=== PATIENT | female | born 1990 | race Caucasian/White ===

== ENCOUNTER 2017-04-05 09:05 | Outpatient (CLI) | payer OTHER ==
[~2017-04-05] VITALS: Ht 162.6 cm; Wt 88.0 kg
[~2017-04-05 09:05] MED LIST: ATIV1TAB10 PO; PERC2.5T PO; PRED20TA PO; TYLE325T5 PO
[2017-04-05] MEDS ORDERED: ACETAMINOPHEN TAB 650MG DOSE (2X325MG) PO ONE (09:30)
[2017-04-05] MEDS ORDERED: VEDOLIZUMAB 300 MG in NS 250 ML IV ONE (09:30)
[2017-04-05] MEDS ORDERED: diphenhydrAMINE 25 MG CAP PO ONE (09:30)
== END 2017-04-05 11:00 | disposition home or self-care (01) ==
LOC: M INFU 09:05
PROVIDERS: ATTEND Internal Medicine Gastroenterology
DX: K50.90 Crohn's disease, unspecified, without complications (principal); Z88.5 Allergy status to narcotic agent; Z88.8 Allergy status to other drugs, medicaments and biological substances; Z79.52 Long term (current) use of systemic steroids
CPT/HCPCS: 96413; J3380

== ENCOUNTER 2017-04-19 13:47 | Outpatient (CLI) | payer OTHER ==
[~2017-04-19] VITALS: Ht 162.6 cm; Wt 88.0 kg
[2017-04-19] MEDS ORDERED: ACETAMINOPHEN TAB 650MG DOSE (2X325MG) PO ONE (14:00)
[2017-04-19] MEDS ORDERED: VEDOLIZUMAB 300 MG in NS 250 ML IV ONE (14:00)
[2017-04-19] MEDS ORDERED: diphenhydrAMINE 25 MG CAP PO ONE (14:00)
== END 2017-04-19 15:00 | disposition home or self-care (01) ==
LOC: M INFU 13:47
PROVIDERS: ATTEND Internal Medicine Gastroenterology
DX: K50.90 Crohn's disease, unspecified, without complications (principal); Z88.5 Allergy status to narcotic agent; Z88.8 Allergy status to other drugs, medicaments and biological substances; Z79.899 Other long term (current) drug therapy; Z79.52 Long term (current) use of systemic steroids
CPT/HCPCS: 96413; J3380

== ENCOUNTER 2017-05-17 14:22 | Outpatient (CLI) | payer OTHER ==
[~2017-05-17] VITALS: Ht 162.6 cm; Wt 88.0 kg
[2017-05-17] MEDS ORDERED: VEDOLIZUMAB 300 MG in NS 250 ML IV ONE (14:30)
[2017-05-17] MEDS ORDERED: diphenhydrAMINE 25 MG CAP PO ONE (14:30)
[2017-05-17] MEDS ORDERED: ACETAMINOPHEN TAB 650MG DOSE (2X325MG) PO ONE (14:30)
== END 2017-05-17 15:45 | disposition home or self-care (01) ==
LOC: M INFU 14:22
PROVIDERS: ATTEND Internal Medicine Gastroenterology
DX: K50.90 Crohn's disease, unspecified, without complications (principal); I10 Essential (primary) hypertension; F32.9 Major depressive disorder, single episode, unspecified; F41.9 Anxiety disorder, unspecified; Z88.5 Allergy status to narcotic agent; Z88.8 Allergy status to other drugs, medicaments and biological substances; Z79.891 Long term (current) use of opiate analgesic; Z79.899 Other long term (current) drug therapy
CPT/HCPCS: 96413; J3380

== ENCOUNTER 2017-07-12 12:48 | Outpatient (CLI) | payer OTHER ==
[~2017-07-12] VITALS: Ht 162.6 cm; Wt 88.0 kg
[2017-07-12] MEDS ORDERED: ACETAMINOPHEN TAB 650MG DOSE (2X325MG) PO ONE (13:00)
[2017-07-12] MEDS ORDERED: diphenhydrAMINE 25 MG CAP PO ONE (13:00)
[2017-07-12] MEDS ORDERED: VEDOLIZUMAB 300 MG in NS 250 ML IV ONE (14:00)
== END 2017-07-12 14:35 | disposition home or self-care (01) ==
LOC: M INFU 12:48
PROVIDERS: ATTEND Internal Medicine Gastroenterology
DX: K50.90 Crohn's disease, unspecified, without complications (principal); Z87.891 Personal history of nicotine dependence; Z88.5 Allergy status to narcotic agent; Z88.8 Allergy status to other drugs, medicaments and biological substances; Z79.899 Other long term (current) drug therapy
CPT/HCPCS: 96413; J3380

== ENCOUNTER 2017-08-29 10:50 | Outpatient (CLI) | payer OTHER ==
[2017-08-29] MEDS: ACETAMINOPHEN TAB 650MG DOSE (2X325MG) PO (11:18)
[2017-08-29] MEDS: diphenhydrAMINE 25 MG CAP PO (11:18)
[2017-08-29] MEDS: VEDOLIZUMAB 300 MG in NS 250 ML IV (11:21)
== END 2017-08-29 12:00 | disposition home or self-care (01) ==
LOC: M INFU 10:50
DX: K50.90 Crohn's disease, unspecified, without complications (principal)
CPT/HCPCS: 96365

== ENCOUNTER 2017-10-13 12:49 | Outpatient (CLI) | payer OTHER ==
[2017-10-13] MEDS: ACETAMINOPHEN TAB 650MG DOSE (2X325MG) PO (13:29)
[2017-10-13] MEDS: diphenhydrAMINE 25 MG CAP PO (13:29)
[2017-10-13] MEDS: VEDOLIZUMAB 300 MG in NS 250 ML IV (13:45)
== END 2017-10-13 14:35 | disposition home or self-care (01) ==
LOC: M INFU 12:49
DX: K50.90 Crohn's disease, unspecified, without complications (principal); I10 Essential (primary) hypertension; F32.9 Major depressive disorder, single episode, unspecified; F41.9 Anxiety disorder, unspecified; Z79.891 Long term (current) use of opiate analgesic; Z79.899 Other long term (current) drug therapy; Z87.891 Personal history of nicotine dependence; Z98.51 Tubal ligation status
CPT/HCPCS: J3380

== ENCOUNTER 2017-11-15 12:23 | Outpatient (CLI) | payer OTHER ==
[2017-11-15] MEDS: diphenhydrAMINE 25 MG CAP PO (12:51)
[2017-11-15] MEDS: ACETAMINOPHEN TAB 650MG DOSE (2X325MG) PO (12:51)
[2017-11-15] MEDS: VEDOLIZUMAB 300 MG in NS 250 ML IV (13:21)
== END 2017-11-15 14:10 | disposition home or self-care (01) ==
LOC: M INFU 12:23
DX: K50.90 Crohn's disease, unspecified, without complications (principal); Z88.5 Allergy status to narcotic agent; Z88.8 Allergy status to other drugs, medicaments and biological substances; Z79.899 Other long term (current) drug therapy
CPT/HCPCS: J3380

== ENCOUNTER 2017-11-30 18:43 | Emergency (ER) | payer OTHER ==
[2017-11-30 19:18] LABS: KETONE, URINE AUTO RFX NEGATIVE (NEGATIVE); LEUKOCYTE ESTERASE UR AUTO RFX NEGATIVE (NEGATIVE); NITRITE, URINE AUTO RFX NEGATIVE (NEGATIVE); RBC, URINE AUTO RFX 1 /HPF (0-3); SPECIFIC GRAVITY UR AUTO RFX 1.005 (1.002-1.035); SQUAM EPITHELIAL CELL UR AURFX 1 /HPF (0-6); WBC, URINE AUTO RFX 0 /HPF (0-3)
[2017-11-30] MEDS: HYDROmorphone HCL 1 MG/ML SYRINGE (J1170) IV ×2 (19:45→22:18)
[2017-11-30] MEDS: NS 1,000 ML IV (19:45)
[2017-11-30] MEDS: ONDANSETRON 4MG/2ML VIAL (J2405) IV (19:45)
[2017-11-30 20:51] LABS: BASO % 0.1 % (0.0-1.0); EOS # 0.1 10^3/uL (0.0-0.50); EOS % 0.9 % (0.0-3.0); HEMATOCRIT 41.9 % (36.0-47.0); HEMOGLOBIN 13.9 g/dl (12.0-15.5); IMMATURE GRANULOCYTE % 0.4 % (0-3.0); LYMPH # 3.2 10^3/uL (1.5-6.5); LYMPH % 22.8 % (24.0-44.0); MEAN CORPUSCULAR HEMOGLOBIN 29.8 pg (27.0-33.0); MEAN CORPUSCULAR HGB CONC 33.2 g/dl (32.0-36.5); MEAN CORPUSCULAR VOLUME 89.7 fl (80.0-96.0); MONO # 0.8 10^3/uL (0.0-0.8); MONO % 5.9 % (0.0-5.0); NEUTROPHILS # 9.7 10^3/uL (1.8-7.7); NEUTROPHILS % 69.9 % (36.0-66.0); PLATELET COUNT, AUTOMATED 301 10^3/uL (150-450); RED BLOOD COUNT 4.67 10^6/uL (4.00-5.40); RED CELL DISTRIBUTION WIDTH 12.9 % (11.5-14.5); WHITE BLOOD COUNT 13.8 10^3/uL (4.0-10.0)
[2017-11-30 21:06] LABS: C REACTIVE PROTEIN QUANTITATIV < 0.30 MG/DL (0.00-0.30)
[2017-11-30 21:08] LABS: ERYTHROCYTE SEDIMENTATION RATE 10 mm/hr (0-20)
[2017-11-30 21:12] LABS: ALBUMIN 4.3 GM/DL (3.2-5.2); ALBUMIN/GLOBULIN RATIO 1.16 (1.00-1.93); ALKALINE PHOSPHATASE 79 U/L (45-117); ALT/SGPT 24 U/L (12-78); ANION GAP 7 MEQ/L (8-16); AST/SGOT 23 U/L (7-37); BILIRUBIN,DIRECT < 0.1 MG/DL (0.0-0.2); BILIRUBIN,TOTAL 0.2 MG/DL (0.2-1.0); BLOOD UREA NITROGEN 9 MG/DL (7-18); CARBON DIOXIDE LEVEL 27 MEQ/L (21-32); CHLORIDE LEVEL 106 MEQ/L (98-107); GLOMERULAR FILTRATION RATE > 60.0 (>60); GLUCOSE, FASTING 81 MG/DL (70-100); HCG, SERUM QUANTITATIVE < 1.0 MIU/ML; LIPASE 160 U/L (73-393); POTASSIUM SERUM 4.3 MEQ/L (3.5-5.1); SODIUM LEVEL 140 MEQ/L (136-145)
[2017-11-30] MEDS ORDERED: GASTROGRAFIN SOLUTION 30ML (Q9963) As Ordered (22:15)
[2017-11-30] MEDS: GASTROGRAFIN SOLUTION 30ML (Q9963) PO ×2 (22:30→23:08)
[2017-11-30] MEDS ORDERED: ISOVUE-370 76% 100ML VIAL (Q9967) As Ordered (23:39)
[2017-12-01] MEDS: methylPREDNISolone INJ 125 MG/2 ML VIAL (J2930) IV (01:30)
[2017-12-01] MEDS: HYDROmorphone HCL 1 MG/ML SYRINGE (J1170) IV (01:30)
== END 2017-12-01 01:53 | disposition home or self-care (01) ==
LOC: M ED 12-01 01:53
DX: K50.10 Crohn's disease of large intestine without complications (principal); F32.9 Major depressive disorder, single episode, unspecified; F41.9 Anxiety disorder, unspecified; Z87.891 Personal history of nicotine dependence; Z88.5 Allergy status to narcotic agent; Z88.8 Allergy status to other drugs, medicaments and biological substances; Z79.899 Other long term (current) drug therapy
CPT/HCPCS: J1170

== ENCOUNTER → 2017-12-16 | Outpatient (REF) | payer OTHER | LOC: M LAB REF 13:31 | DX: K50.018 Crohn's disease of small intestine with other complication (principal) ==

== ENCOUNTER 2018-01-02 13:12 | Outpatient (CLI) | payer OTHER ==
[2018-01-02] MEDS: ACETAMINOPHEN TAB 650MG DOSE (2X325MG) PO (13:46)
[2018-01-02] MEDS: diphenhydrAMINE 25 MG CAP PO (13:46)
[2018-01-02] MEDS: VEDOLIZUMAB 300 MG in NS 250 ML IV (14:01)
== END 2018-01-02 14:45 | disposition home or self-care (01) ==
LOC: M INFU 13:12
DX: K50.90 Crohn's disease, unspecified, without complications (principal); I10 Essential (primary) hypertension; F32.9 Major depressive disorder, single episode, unspecified; F41.9 Anxiety disorder, unspecified; Z79.891 Long term (current) use of opiate analgesic; Z79.899 Other long term (current) drug therapy; Z88.5 Allergy status to narcotic agent; Z88.8 Allergy status to other drugs, medicaments and biological substances; Z87.891 Personal history of nicotine dependence
CPT/HCPCS: J3380

== ENCOUNTER → 2018-01-09 | Outpatient (REF) | payer OTHER | LOC: M LAB REF 12:02 | DX: K50.018 Crohn's disease of small intestine with other complication (principal); R19.7 Diarrhea, unspecified ==

== ENCOUNTER 2018-01-24 09:05 | Day surgery (SDC) | payer OTHER ==
[2018-01-24] MEDS ORDERED: PROPOFOL 200 MG/20 ML VIAL As Ordered ×2 (09:22→10:42)
[2018-01-24] MEDS ORDERED: LIDOCAINE 2% INJ 100 MG/5 ML SDV (FOR ANES.) As Ordered (09:22)
[2018-01-24] MEDS: NS 1,000 ML IV (09:26)
== END 2018-01-24 11:30 | disposition home or self-care (01) ==
LOC: M OPP 09:05
DX: K64.0 First degree hemorrhoids (principal); Z98.0 Intestinal bypass and anastomosis status; K50.90 Crohn's disease, unspecified, without complications; K52.9 Noninfective gastroenteritis and colitis, unspecified; K21.9 Gastro-esophageal reflux disease without esophagitis; F41.9 Anxiety disorder, unspecified; F32.9 Major depressive disorder, single episode, unspecified; G43.909 Migraine, unspecified, not intractable, without status migrainosus; J45.909 Unspecified asthma, uncomplicated; Z79.899 Other long term (current) drug therapy; Z88.8 Allergy status to other drugs, medicaments and biological substances; Z87.891 Personal history of nicotine dependence
CPT/HCPCS: 45378

== ENCOUNTER 2018-03-26 11:35 | Outpatient (CLI) | payer OTHER ==
[2018-03-26] MEDS: diphenhydrAMINE 25 MG CAP PO (12:04)
[2018-03-26] MEDS: ACETAMINOPHEN TAB 650MG DOSE (2X325MG) PO (12:04)
[2018-03-26] MEDS: VEDOLIZUMAB 300 MG in NS 250 ML IV (12:14)
== END 2018-03-26 13:10 | disposition home or self-care (01) ==
LOC: M INFU 11:35
DX: K50.90 Crohn's disease, unspecified, without complications (principal); Z88.8 Allergy status to other drugs, medicaments and biological substances; Z79.899 Other long term (current) drug therapy; Z79.891 Long term (current) use of opiate analgesic
CPT/HCPCS: J3380

== ENCOUNTER 2018-05-02 11:42 | Outpatient (CLI) | payer OTHER ==
[2018-05-02] MEDS: diphenhydrAMINE 25 MG CAP PO (12:15)
[2018-05-02] MEDS: ACETAMINOPHEN TAB 650MG DOSE (2X325MG) PO (12:15)
[2018-05-02] MEDS: VEDOLIZUMAB 300 MG in NS 250 ML IV (12:47)
== END 2018-05-02 13:45 | disposition home or self-care (01) ==
LOC: M INFU 11:42
DX: K50.90 Crohn's disease, unspecified, without complications (principal); G43.909 Migraine, unspecified, not intractable, without status migrainosus; J45.909 Unspecified asthma, uncomplicated; F41.9 Anxiety disorder, unspecified; F32.9 Major depressive disorder, single episode, unspecified; N94.6 Dysmenorrhea, unspecified; G47.00 Insomnia, unspecified; Z79.899 Other long term (current) drug therapy; Z88.8 Allergy status to other drugs, medicaments and biological substances; Z90.49 Acquired absence of other specified parts of digestive tract
CPT/HCPCS: J3380

== ENCOUNTER 2018-06-21 15:25 | Outpatient (CLI) | payer OTHER ==
[2018-06-21] MEDS: ACETAMINOPHEN TAB 650MG DOSE (2X325MG) PO (15:46)
[2018-06-21] MEDS: diphenhydrAMINE 25 MG CAP PO (15:46)
[2018-06-21] MEDS: VEDOLIZUMAB 300 MG in NS 250 ML IV (16:11)
== END 2018-06-21 17:00 | disposition home or self-care (01) ==
LOC: M INFU 15:25
DX: K50.90 Crohn's disease, unspecified, without complications (principal); Z79.891 Long term (current) use of opiate analgesic; Z79.899 Other long term (current) drug therapy; Z88.5 Allergy status to narcotic agent; Z88.8 Allergy status to other drugs, medicaments and biological substances
CPT/HCPCS: J3380

== ENCOUNTER 2018-07-25 11:33 | Outpatient (CLI) | payer OTHER ==
[2018-07-25] MEDS: diphenhydrAMINE 25 MG CAP PO (12:04)
[2018-07-25] MEDS: ACETAMINOPHEN TAB 650MG DOSE (2X325MG) PO (12:04)
[2018-07-25] MEDS: VEDOLIZUMAB 300 MG in NS 250 ML IV (12:05)
== END 2018-07-25 13:00 | disposition home or self-care (01) ==
LOC: M INFU 11:33
DX: K50.90 Crohn's disease, unspecified, without complications (principal); Z88.5 Allergy status to narcotic agent; Z88.8 Allergy status to other drugs, medicaments and biological substances
CPT/HCPCS: J3380

== ENCOUNTER 2018-09-06 10:23 | Outpatient (CLI) | payer OTHER ==
[~2018-09-06] VITALS: Ht 162.6 cm; Wt 64.0 kg
[~2018-09-06 10:23] MED LIST changes: +ENTY1INJ IV; +MORP1CAP46 PO; +MORP20SO3 PO; +PERC5TAB12 PO
[2018-09-06 10:38] VITALS: BP 149/75
[2018-09-06 11:00] VITALS: BP 118/58
[2018-09-06] MEDS ORDERED: VEDOLIZUMAB 300 MG in NS 250 ML IV ONE (11:00)
[2018-09-06] MEDS ORDERED: ACETAMINOPHEN TAB 650MG DOSE (2X325MG) PO ONE (11:00)
[2018-09-06] MEDS ORDERED: diphenhydrAMINE 25 MG CAP PO ONE (11:00)
[2018-09-06 12:00] VITALS: BP 128/80
== END 2018-09-06 12:15 | disposition home or self-care (01) ==
LOC: M INFU 10:23
PROVIDERS: ATTEND Internal Medicine Gastroenterology
DX: K50.90 Crohn's disease, unspecified, without complications (principal); Z88.5 Allergy status to narcotic agent; Z88.8 Allergy status to other drugs, medicaments and biological substances
CPT/HCPCS: 96365; J3380

== ENCOUNTER 2018-10-12 10:50 | Outpatient (CLI) | payer OTHER ==
[~2018-10-12] VITALS: Ht 162.6 cm; Wt 64.0 kg
[2018-10-12] MEDS ORDERED: diphenhydrAMINE 25 MG CAP PO ONE (11:00)
[2018-10-12] MEDS ORDERED: VEDOLIZUMAB 300 MG in NS 250 ML IV ONE (11:00)
[2018-10-12] MEDS ORDERED: ACETAMINOPHEN TAB 650MG DOSE (2X325MG) PO ONE (11:00)
[2018-10-12 11:12] VITALS: BP 136/66
[2018-10-12 12:13] VITALS: BP 124/88
== END 2018-10-12 12:15 | disposition home or self-care (01) ==
LOC: M INFU 10:50
PROVIDERS: ATTEND Internal Medicine Gastroenterology
DX: K50.90 Crohn's disease, unspecified, without complications (principal); Z88.8 Allergy status to other drugs, medicaments and biological substances
CPT/HCPCS: 96365; J3380

== ENCOUNTER 2018-11-23 11:28 | Outpatient (CLI) | payer OTHER ==
[~2018-11-23] VITALS: Ht 162.6 cm; Wt 90.7 kg
[2018-11-23 11:35] VITALS: BP 127/73
[2018-11-23] MEDS ORDERED: VEDOLIZUMAB 300 MG in NS 250 ML IV ONE (12:00)
[2018-11-23] MEDS ORDERED: ACETAMINOPHEN TAB 650MG DOSE (2X325MG) PO ONE (12:00)
[2018-11-23] MEDS ORDERED: diphenhydrAMINE 25 MG CAP PO ONE (12:00)
== END 2018-11-23 13:15 | disposition home or self-care (01) ==
LOC: M INFU 11:28
PROVIDERS: ATTEND Internal Medicine Gastroenterology
DX: K50.90 Crohn's disease, unspecified, without complications (principal); Z88.5 Allergy status to narcotic agent; Z88.8 Allergy status to other drugs, medicaments and biological substances; Z79.899 Other long term (current) drug therapy
CPT/HCPCS: 96365; J3380

== ENCOUNTER 2019-01-04 12:09 | Outpatient (CLI) | payer OTHER ==
[~2019-01-04] VITALS: Ht 162.6 cm; Wt 90.7 kg
[2019-01-04 12:15] VITALS: BP 132/84
[2019-01-04] MEDS ORDERED: diphenhydrAMINE 25 MG CAP PO ONE (12:30)
[2019-01-04] MEDS ORDERED: ACETAMINOPHEN TAB 650MG DOSE (2X325MG) PO ONE (12:30)
[2019-01-04] MEDS ORDERED: VEDOLIZUMAB 300 MG in NS 250 ML IV ONE (13:00)
[2019-01-04 14:00] VITALS: BP 121/81
== END 2019-01-04 14:00 | disposition home or self-care (01) ==
LOC: M INFU 12:09
PROVIDERS: ATTEND Internal Medicine Gastroenterology
DX: K50.90 Crohn's disease, unspecified, without complications (principal); Z88.5 Allergy status to narcotic agent; Z88.8 Allergy status to other drugs, medicaments and biological substances
CPT/HCPCS: 96365; J3380

== ENCOUNTER 2019-02-15 10:44 | Outpatient (CLI) | payer OTHER ==
[2019-02-15 10:45] VITALS: BP 131/78
[2019-02-15] MEDS ORDERED: ACETAMINOPHEN TAB 650MG DOSE (2X325MG) PO ONE (11:00)
[2019-02-15] MEDS ORDERED: diphenhydrAMINE 25 MG CAP PO ONE (11:00)
[2019-02-15] MEDS ORDERED: VEDOLIZUMAB 300 MG in NS 250 ML IV ONE (11:15)
[2019-02-15 12:00] VITALS: BP 124/68
== END 2019-02-15 12:00 | disposition home or self-care (01) ==
LOC: M INFU 10:44
PROVIDERS: ATTEND Internal Medicine Gastroenterology
DX: K50.90 Crohn's disease, unspecified, without complications (principal); Z88.5 Allergy status to narcotic agent; Z88.8 Allergy status to other drugs, medicaments and biological substances
CPT/HCPCS: 96365; 96366; J3380

== ENCOUNTER 2019-03-29 10:41 | Outpatient (CLI) | payer OTHER ==
[~2019-03-29] VITALS: Ht 162.6 cm; Wt 90.7 kg
[2019-03-29 11:10] VITALS: BP 136/84
[2019-03-29] MEDS ORDERED: diphenhydrAMINE 25 MG CAP PO ONE (12:00)
[2019-03-29] MEDS ORDERED: ACETAMINOPHEN TAB 650MG DOSE (2X325MG) PO ONE (12:00)
[2019-03-29] MEDS ORDERED: VEDOLIZUMAB 300 MG in NS 250 ML IV ONE (12:00)
[2019-03-29 12:05] VITALS: BP 125/78
== END 2019-03-29 12:20 | disposition home or self-care (01) ==
LOC: M INFU 10:41
PROVIDERS: ATTEND Internal Medicine Gastroenterology
DX: K50.90 Crohn's disease, unspecified, without complications (principal); Z88.5 Allergy status to narcotic agent; Z88.8 Allergy status to other drugs, medicaments and biological substances
CPT/HCPCS: 96365; J3380

== ENCOUNTER 2019-05-10 10:46 | Outpatient (CLI) | payer OTHER ==
[~2019-05-10] VITALS: Ht 162.6 cm; Wt 90.9 kg
[2019-05-10 10:50] VITALS: BP 128/78
[2019-05-10] MEDS ORDERED: VEDOLIZUMAB 300 MG in NS 250 ML IV ONE (12:00)
[2019-05-10] MEDS ORDERED: ACETAMINOPHEN TAB 650MG DOSE (2X325MG) PO ONE (12:00)
[2019-05-10] MEDS ORDERED: diphenhydrAMINE 25 MG CAP PO ONE (12:00)
[2019-05-10 12:45] VITALS: BP 104/68
[2019-05-10] MEDS ORDERED: ZOFR4TAB16 PO (17:59)
== END 2019-05-10 12:45 | disposition home or self-care (01) ==
LOC: M INFU 10:46
PROVIDERS: ATTEND Internal Medicine Gastroenterology
DX: K50.90 Crohn's disease, unspecified, without complications (principal); Z88.5 Allergy status to narcotic agent; Z88.8 Allergy status to other drugs, medicaments and biological substances
CPT/HCPCS: 96365; J3380

== ENCOUNTER 2019-06-21 10:38 | Outpatient (CLI) | payer OTHER ==
[~2019-06-21] VITALS: Ht 162.6 cm; Wt 90.7 kg
[~2019-06-21 10:38] MED LIST changes: +ZOFR4TAB16 PO
[2019-06-21 10:40] VITALS: BP 140/91
[2019-06-21] MEDS ORDERED: diphenhydrAMINE 25 MG CAP PO ONE (12:00)
[2019-06-21] MEDS ORDERED: VEDOLIZUMAB 300 MG in NS 250 ML IV ONE (12:00)
[2019-06-21] MEDS ORDERED: ACETAMINOPHEN TAB 650MG DOSE (2X325MG) PO ONE (12:00)
[2019-06-21 12:05] VITALS: BP 134/87
== END 2019-06-21 12:05 ==
LOC: M INFU 10:38
PROVIDERS: ATTEND Internal Medicine Gastroenterology
DX: K50.90 Crohn's disease, unspecified, without complications (principal); Z88.5 Allergy status to narcotic agent; Z88.8 Allergy status to other drugs, medicaments and biological substances
CPT/HCPCS: 96365; J3380

== ENCOUNTER 2019-08-02 10:44 | Outpatient (CLI) | payer OTHER ==
[~2019-08-02] VITALS: Ht 162.6 cm; Wt 90.7 kg
[2019-08-02 10:45] VITALS: BP 155/89
[2019-08-02] MEDS ORDERED: SULF1TAB30 PO (11:02)
[2019-08-02] MEDS ORDERED: diphenhydrAMINE 25 MG CAP PO ONE (11:15)
[2019-08-02] MEDS ORDERED: ACETAMINOPHEN TAB 650MG DOSE (2X325MG) PO ONE (11:15)
[2019-08-02] MEDS ORDERED: VEDOLIZUMAB 300 MG in NS 250 ML IV ONE (11:30)
[2019-08-02 12:05] VITALS: BP 145/94
== END 2019-08-02 12:05 | disposition home or self-care (01) ==
LOC: M INFU 10:44
PROVIDERS: ATTEND Internal Medicine Gastroenterology
DX: K50.90 Crohn's disease, unspecified, without complications (principal); Z88.8 Allergy status to other drugs, medicaments and biological substances
CPT/HCPCS: 96365; J3380

== ENCOUNTER 2019-09-13 10:13 | Outpatient (CLI) | payer OTHER ==
[~2019-09-13] VITALS: Ht 162.6 cm; Wt 90.7 kg
[~2019-09-13 10:13] MED LIST changes: +SULF1TAB30 PO
[2019-09-13] MEDS ORDERED: diphenhydrAMINE 25 MG CAP PO ONE (10:30)
[2019-09-13] MEDS ORDERED: ACETAMINOPHEN TAB 650MG DOSE (2X325MG) PO ONE (10:30)
[2019-09-13] MEDS ORDERED: VEDOLIZUMAB 300 MG in NS 250 ML IV ONE (10:30)
[2019-09-13 10:49] VITALS: BP 131/77
[2019-09-13 11:44] VITALS: BP 150/76
== END 2019-09-13 11:40 | disposition home or self-care (01) ==
LOC: M INFU 10:13
PROVIDERS: ATTEND Internal Medicine Gastroenterology
DX: K50.90 Crohn's disease, unspecified, without complications (principal); Z88.1 Allergy status to other antibiotic agents; Z88.8 Allergy status to other drugs, medicaments and biological substances
CPT/HCPCS: 96365; J3380

== ENCOUNTER 2019-10-28 11:07 | Outpatient (CLI) | payer OTHER ==
[~2019-10-28] VITALS: Ht 162.6 cm; Wt 90.7 kg
[2019-10-28 11:15] VITALS: BP 133/89
[2019-10-28] MEDS ORDERED: VEDOLIZUMAB 300 MG in NS 250 ML IV ONE (11:35)
[2019-10-28] MEDS ORDERED: ACETAMINOPHEN TAB 650MG DOSE (2X325MG) PO ONE (11:35)
[2019-10-28] MEDS ORDERED: diphenhydrAMINE 25 MG CAP PO ONE (11:35)
[2019-10-28 12:30] VITALS: BP 127/79
== END 2019-10-28 12:30 | disposition home or self-care (01) ==
LOC: M INFU 11:07
PROVIDERS: ATTEND Internal Medicine Gastroenterology
DX: K50.90 Crohn's disease, unspecified, without complications (principal); Z88.8 Allergy status to other drugs, medicaments and biological substances; Z88.9 Allergy status to unspecified drugs, medicaments and biological substances
CPT/HCPCS: 96365; J3380

== ENCOUNTER 2019-12-09 11:07 | Outpatient (CLI) | payer OTHER ==
[~2019-12-09] VITALS: Ht 162.6 cm; Wt 90.7 kg
[2019-12-09 11:15] VITALS: BP 134/74
[2019-12-09] MEDS ORDERED: ACETAMINOPHEN TAB 650MG DOSE (2X325MG) PO ONE (11:45)
[2019-12-09] MEDS ORDERED: diphenhydrAMINE 25MG CAP PO ONE (11:45)
[2019-12-09] MEDS ORDERED: VEDOLIZUMAB 300 MG in NS 250 ML IV ONE (11:45)
[2019-12-09 12:20] VITALS: BP 116/72
== END 2019-12-09 12:20 | disposition home or self-care (01) ==
LOC: M INFU 11:07
PROVIDERS: ATTEND Internal Medicine Gastroenterology
DX: K50.90 Crohn's disease, unspecified, without complications (principal); Z88.8 Allergy status to other drugs, medicaments and biological substances
CPT/HCPCS: 96365; J3380

== ENCOUNTER 2020-01-21 11:08 | Outpatient (CLI) | payer OTHER ==
[~2020-01-21] VITALS: Ht 162.6 cm; Wt 90.7 kg
[2020-01-21 11:24] VITALS: BP 137/81
[2020-01-21] MEDS ORDERED: VEDOLIZUMAB 300 MG in NS 250 ML IV ONE (11:30)
[2020-01-21] MEDS ORDERED: diphenhydrAMINE 25MG CAP PO ONE (11:30)
[2020-01-21] MEDS ORDERED: ACETAMINOPHEN TAB 650MG DOSE (2X325MG) PO ONE (11:30)
[2020-01-21 12:42] VITALS: BP 143/87
== END 2020-01-21 12:45 | disposition home or self-care (01) ==
LOC: M INFU 11:08
PROVIDERS: ATTEND Internal Medicine Gastroenterology
DX: K50.90 Crohn's disease, unspecified, without complications (principal)
CPT/HCPCS: 96365; J3380

== ENCOUNTER 2020-03-03 10:50 | Outpatient (CLI) | payer OTHER ==
[~2020-03-03] VITALS: Ht 162.6 cm; Wt 90.9 kg
[2020-03-03 11:12] VITALS: BP 156/85
[2020-03-03] MEDS ORDERED: ACETAMINOPHEN TAB 650MG DOSE (2X325MG) PO ONE (11:15)
[2020-03-03] MEDS ORDERED: diphenhydrAMINE 25MG CAP PO ONE (11:15)
[2020-03-03] MEDS ORDERED: VEDOLIZUMAB 300 MG in NS 250 ML IV ONE (11:30)
[2020-03-03 12:10] VITALS: BP 134/85
== END 2020-03-03 12:10 | disposition home or self-care (01) ==
LOC: M INFU 10:50
PROVIDERS: ATTEND Internal Medicine Gastroenterology
DX: K50.90 Crohn's disease, unspecified, without complications (principal)
CPT/HCPCS: 96365; J3380

== ENCOUNTER 2020-04-14 11:30 | Outpatient (CLI) | payer OTHER ==
[~2020-04-14 11:30] MED LIST changes: +VEDOLIZUMAB 300MG VIAL (ENTYVIO) (J3380 PER 1MG) ONE
[2020-04-14] MEDS ORDERED: ACETAMINOPHEN TAB 650MG DOSE (2X325MG) As Ordered ONE (12:09)
[2020-04-14] MEDS ORDERED: diphenhydrAMINE 25MG CAP As Ordered ONE (12:10)
== END 2020-04-14 13:00 | disposition home or self-care (01) ==
LOC: M INFU 11:30
PROVIDERS: ATTEND Internal Medicine Gastroenterology
DX: K50.90 Crohn's disease, unspecified, without complications (principal)
CPT/HCPCS: 96365; J3380

== ENCOUNTER 2020-05-12 11:16 | Outpatient (CLI) | payer OTHER ==
[~2020-05-12] VITALS: Ht 162.6 cm; Wt 90.7 kg
[~2020-05-12 11:16] MED LIST changes: -VEDOLIZUMAB 300MG VIAL (ENTYVIO) (J3380 PER 1MG) ONE
[2020-05-12] MEDS ORDERED: ACETAMINOPHEN TAB 650MG DOSE (2X325MG) As Ordered ONE (11:29)
[2020-05-12] MEDS ORDERED: diphenhydrAMINE 25MG CAP As Ordered ONE (11:29)
[2020-05-12] MEDS ORDERED: diphenhydrAMINE 25MG CAP PO ONE (11:30)
[2020-05-12] MEDS ORDERED: VEDOLIZUMAB 300 MG in NS 250 ML IV ONE (11:30)
[2020-05-12] MEDS ORDERED: ACETAMINOPHEN TAB 650MG DOSE (2X325MG) PO ONE (11:30)
[2020-05-12 11:34] VITALS: BP 135/86
[2020-05-12 11:38] VITALS: BP 135/86
[2020-05-12 12:47] VITALS: BP 129/98
== END 2020-05-12 12:45 | disposition home or self-care (01) ==
LOC: M INFU 11:16
PROVIDERS: ATTEND Internal Medicine Gastroenterology
DX: K50.90 Crohn's disease, unspecified, without complications (principal)
CPT/HCPCS: 96365; J3380

== ENCOUNTER 2020-06-09 11:06 | Outpatient (CLI) | payer OTHER ==
[~2020-06-09] VITALS: Ht 162.6 cm; Wt 90.7 kg
[2020-06-09] MEDS: ACETAMINOPHEN TAB 650MG DOSE (2X325MG) PO ONE (11:19)
[2020-06-09] MEDS: diphenhydrAMINE 25MG CAP PO ONE (11:20)
[2020-06-09 11:30] VITALS: BP 142/78
[2020-06-09] MEDS: VEDOLIZUMAB 300 MG in NS 250 ML IV ONE (11:31)
[2020-06-09 12:19] VITALS: BP 138/81
[2020-06-09 12:21] VITALS: BP 138/81
== END 2020-06-09 12:20 | disposition home or self-care (01) ==
LOC: M INFU 11:06
PROVIDERS: ATTEND Internal Medicine Gastroenterology
DX: K50.90 Crohn's disease, unspecified, without complications (principal)
CPT/HCPCS: 96365; J3380

== ENCOUNTER 2020-07-10 14:09 | Outpatient (CLI) | payer OTHER ==
[~2020-07-10] VITALS: Ht 167.6 cm; Wt 90.7 kg
[2020-07-10] MEDS ORDERED: ACETAMINOPHEN TAB 650MG DOSE (2X325MG) PO ONE (14:30)
[2020-07-10] MEDS ORDERED: VEDOLIZUMAB 300 MG in NS 250 ML IV ONE (14:30)
[2020-07-10] MEDS ORDERED: diphenhydrAMINE 25MG CAP PO ONE (14:30)
[2020-07-10 14:38] VITALS: BP 117/58
[2020-07-10 14:43] VITALS: BP 117/58
[2020-07-10 15:05] VITALS: BP 135/79
[2020-07-10 15:20] VITALS: BP 135/79
== END 2020-07-10 15:20 | disposition home or self-care (01) ==
LOC: M INFU 14:09
PROVIDERS: ATTEND Internal Medicine Gastroenterology
DX: K50.90 Crohn's disease, unspecified, without complications (principal); Z88.8 Allergy status to other drugs, medicaments and biological substances
CPT/HCPCS: 96365; J3380

== ENCOUNTER 2020-08-07 13:57 | Outpatient (CLI) | payer OTHER ==
[~2020-08-07] VITALS: Ht 167.6 cm; Wt 90.7 kg
[2020-08-07 14:00] VITALS: BP 118/73
[2020-08-07] MEDS ORDERED: ACETAMINOPHEN TAB 650MG DOSE (2X325MG) PO ONE (14:30)
[2020-08-07] MEDS ORDERED: VEDOLIZUMAB 300 MG in NS 250 ML IV ONE (14:30)
[2020-08-07] MEDS ORDERED: diphenhydrAMINE 25MG CAP PO ONE (14:30)
[2020-08-07 15:30] VITALS: BP 120/74
== END 2020-08-07 15:30 | disposition home or self-care (01) ==
LOC: M INFU 13:57
PROVIDERS: ATTEND Internal Medicine Gastroenterology
DX: K50.90 Crohn's disease, unspecified, without complications (principal); Z88.8 Allergy status to other drugs, medicaments and biological substances
CPT/HCPCS: 96365; J3380

== ENCOUNTER 2020-10-07 10:26 | Outpatient (CLI) | payer OTHER ==
[~2020-10-07] VITALS: Ht 167.6 cm; Wt 90.7 kg
[~2020-10-07 10:26] MED LIST changes: +ACETAMINOPHEN TAB 650MG DOSE (2X325MG) PO ONE; +VEDOLIZUMAB 300 MG in NS 250 ML IV ONE; +diphenhydrAMINE 25MG CAP PO ONE
[2020-10-07 10:30] VITALS: BP 120/77
[2020-10-07] MEDS ORDERED: VEDOLIZUMAB 300 MG in NS 250 ML IV ONE (10:30)
[2020-10-07] MEDS ORDERED: diphenhydrAMINE 25MG CAP PO ONE (10:30)
[2020-10-07] MEDS ORDERED: ACETAMINOPHEN TAB 650MG DOSE (2X325MG) PO ONE (10:30)
[2020-10-07 13:00] VITALS: BP 118/71
== END 2020-10-07 13:00 | disposition home or self-care (01) ==
LOC: M INFU 10:26
PROVIDERS: ATTEND Internal Medicine Gastroenterology
DX: K50.90 Crohn's disease, unspecified, without complications (principal); Z88.8 Allergy status to other drugs, medicaments and biological substances
CPT/HCPCS: 96365; J3380

== ENCOUNTER → 2020-10-07 | Outpatient (CLI) | payer OTHER ==
[2020-10-07 11:50] LABS: C REACTIVE PROTEIN QUANTITATIV < 0.30 MG/DL (0.00-0.30); CPK CREATINE PHOSPHOKINASE 96 U/L (26-192); IRON (FE) 46 UG/DL (50-170); PHOSPHORUS LEVEL 2.4 MG/DL (2.5-4.9); RHEUMATOID FACTOR QUANT < 10.0 IU/ML (<15.0); THYROID STIMULATING HORMONE 0.601 uIU/ML (0.358-3.740)
[2020-10-07 11:52] LABS: VITAMIN B12 LEVEL 562 PG/ML (247-911)
[2020-10-07 12:00] LABS: DRVV SCREEN 36.6 SEC; PTT LUPUS TYPE ANTICOAG SCREEN 0.9 (0-1.2)
--- NOTE | 2020-10-07 17:39 | REP ---
INDICATION: R/O SACROILITIS PT IS HAVING INFUSION FIRST THEN XRAY. COMPARISON: None. TECHNIQUE: Single frontal view of the pelvis. FINDINGS: Bilateral sacroiliac joints are symmetric and normal. Osseous structures and hip joints are symmetric and normal. No evidence for acute or healed injury. No obvious congenital abnormality. Surrounding soft tissues are normal. IMPRESSION: Normal pelvic radiograph. <Electronically signed by Luis Mims > 10/07/20 [id number]
--- NOTE | 2020-10-07 17:40 | REP ---
INDICATION: JOINT PAIN AND SWELLING PT IS HAVING INFUSION FIRST THEN X COMPARISON: None. TECHNIQUE: AP, lateral, bilateral oblique views right and left wrist. FINDINGS: The bilateral carpal bones, surrounding osseous structures, soft tissues, and joint spaces are normal and symmetric. There is no evidence for acute fracture or dislocation. No subcutaneous emphysema or radiodense foreign body. IMPRESSION: Normal bilateral wrist series. <Electronically signed by Luis Mims > 10/07/20 [id number]
--- NOTE | 2020-10-07 17:42 | REP ---
INDICATION: JOINT PAIN AND SWELLING PT IS HAVING INFUSION FIRST THEN X COMPARISON: None. TECHNIQUE: AP, lateral, bilateral oblique views right and left hand. FINDINGS: The bilateral osseous structures and joint spaces are intact and normal. There is no evidence for acute fracture or dislocation. Surrounding soft tissues are unremarkable. No subcutaneous emphysema or radiodense foreign body. IMPRESSION: Normal symmetric bilateral hand series. No significant degenerative changes. <Electronically signed by Luis Mims > 10/07/20 [id number]
== END ==
LOC: M INFU 10:28
PROVIDERS: ATTEND Internal Medicine
DX: M54.9 Dorsalgia, unspecified (principal); M25.40 Effusion, unspecified joint; M79.10 Myalgia, unspecified site; R23.1 Pallor

== ENCOUNTER → 2020-10-19 | Outpatient (REF) | payer OTHER ==
[~2020-10-19] MED LIST changes: -ACETAMINOPHEN TAB 650MG DOSE (2X325MG) PO ONE; -VEDOLIZUMAB 300 MG in NS 250 ML IV ONE; -diphenhydrAMINE 25MG CAP PO ONE
[2020-10-19 16:59] LABS: BASO % 0.3 % (0.0-1.0); EOS # 0.1 10^3/uL (0.0-0.5); HEMATOCRIT 45.4 % (36.0-47.0); HEMOGLOBIN 14.8 g/dl (12.0-15.5); LYMPH # 4.6 10^3/uL (1.5-5.0); LYMPH % 40.3 % (24.0-44.0); MEAN CORPUSCULAR HEMOGLOBIN 29.1 pg (27.0-33.0); MEAN CORPUSCULAR HGB CONC 32.6 g/dl (32.0-36.5); MEAN CORPUSCULAR VOLUME 89.4 fl (80.0-96.0); MONO # 0.8 10^3/uL (0.0-0.8); MONO % 6.7 % (2.0-8.0); NEUTROPHILS # 5.9 10^3/uL (1.5-8.5); NEUTROPHILS % 51.4 % (36.0-66.0); PLATELET COUNT, AUTOMATED 333 10^3/uL (150-450); RED BLOOD COUNT 5.08 10^6/uL (4.00-5.40); WHITE BLOOD COUNT 11.4 10^3/uL (4.0-10.0)
[2020-10-19 17:03] LABS: APPEARANCE, URINE CLEAR (CLEAR); BACTERIA, URINE AUTO NEGATIVE (NEGATIVE); BILIRUBIN, URINE AUTO NEGATIVE (NEGATIVE); BLOOD, URINE BLOOD NEGATIVE (NEGATIVE); COLOR, URINE YELLOW (YELLOW); GLUCOSE, URINE (UA) AUTO NEGATIVE (NEGATIVE); KETONE, URINE AUTO NEGATIVE (NEGATIVE); LEUKOCYTE ESTERASE, URINE AUTO NEGATIVE (NEGATIVE); MUCUS, URINE SMALL (NEGATIVE); NITRITE, URINE AUTO NEGATIVE (NEGATIVE); PROTEIN, URINE AUTO NEGATIVE (NEGATIVE); RBC, URINE AUTO 3 /HPF (0-3); SPECIFIC GRAVITY URINE AUTO 1.014 (1.002-1.035); SQUAMOUS EPITHELIAL CELL UR AU 1 /HPF (0-6); UROBILINOGEN, URINE AUTO 0.2 mg/dL (0.0-2.0); WBC, URINE AUTO 1 /HPF (0-3)
[2020-10-19 17:17] LABS: TOTAL PROTEIN,RANDOM URINE 14.6 MG/DL (0.0-12.0)
[2020-10-21 09:00] LABS: MAGNESIUM LEVEL 2.1 MG/DL (1.8-2.4)
== END ==
LOC: M SFHCRHEU 12:40
PROVIDERS: ATTEND Internal Medicine
DX: R76.8 Other specified abnormal immunological findings in serum (principal)

== ENCOUNTER 2020-12-04 15:10 | Outpatient (CLI) | payer OTHER ==
[~2020-12-04] VITALS: Ht 167.6 cm; Wt 90.7 kg
[~2020-12-04 15:10] MED LIST changes: +ACETAMINOPHEN TAB 650MG DOSE (2X325MG) PO ONE; +VEDOLIZUMAB 300 MG in NS 250 ML IV ONE; +diphenhydrAMINE 25MG CAP PO ONE
[2020-12-04 15:15] VITALS: BP 137/86
[2020-12-04] MEDS ORDERED: VEDOLIZUMAB 300 MG in NS 250 ML IV ONE (15:25)
[2020-12-04] MEDS ORDERED: diphenhydrAMINE 25MG CAP PO ONE (15:25)
[2020-12-04] MEDS ORDERED: ACETAMINOPHEN TAB 650MG DOSE (2X325MG) PO ONE (15:25)
[2020-12-04 15:30] VITALS: BP 137/86
[2020-12-04 16:35] VITALS: BP 132/84
[2020-12-04 16:50] VITALS: BP 132/84
== END 2020-12-04 16:50 | disposition home or self-care (01) ==
LOC: M INFU 15:10
PROVIDERS: ATTEND Internal Medicine Gastroenterology
DX: K50.90 Crohn's disease, unspecified, without complications (principal); Z88.8 Allergy status to other drugs, medicaments and biological substances
CPT/HCPCS: 96365; J3380

== ENCOUNTER 2021-01-01 14:25 | Outpatient (CLI) | payer OTHER ==
[~2021-01-01] VITALS: Ht 167.6 cm; Wt 90.0 kg
[~2021-01-01 14:25] MED LIST changes: -ACETAMINOPHEN TAB 650MG DOSE (2X325MG) PO ONE; -VEDOLIZUMAB 300 MG in NS 250 ML IV ONE; -diphenhydrAMINE 25MG CAP PO ONE
[2021-01-01 14:30] VITALS: BP 126/68
[2021-01-01] MEDS ORDERED: diphenhydrAMINE 25MG CAP PO ONE (14:30)
[2021-01-01] MEDS ORDERED: ACETAMINOPHEN TAB 650MG DOSE (2X325MG) PO ONE (14:30)
[2021-01-01] MEDS ORDERED: VEDOLIZUMAB 300 MG in NS 250 ML IV ONE (14:30)
[2021-01-01 15:34] VITALS: BP 119/60
[2021-01-01 15:44] VITALS: BP 119/60
== END 2021-01-01 15:35 | disposition home or self-care (01) ==
LOC: M INFU 14:25
PROVIDERS: ATTEND Internal Medicine Gastroenterology
DX: K50.90 Crohn's disease, unspecified, without complications (principal); Z88.8 Allergy status to other drugs, medicaments and biological substances
CPT/HCPCS: 96365; J3380

== ENCOUNTER 2021-01-29 16:47 | Outpatient (CLI) | payer OTHER ==
[~2021-01-29] VITALS: Ht 157.5 cm; Wt 90.7 kg
[~2021-01-29 16:47] MED LIST changes: +ACETAMINOPHEN TAB 650MG DOSE (2X325MG) PO ONE; +VEDOLIZUMAB 300 MG in NS 250 ML IV ONE; +diphenhydrAMINE 25MG CAP PO ONE
[2021-01-29 16:55] VITALS: BP 147/84
[2021-01-29 17:37] VITALS: BP 149/80
== END 2021-01-29 17:50 | disposition home or self-care (01) ==
LOC: M INFU 16:47
PROVIDERS: ATTEND Internal Medicine Gastroenterology
DX: K50.90 Crohn's disease, unspecified, without complications (principal); Z88.8 Allergy status to other drugs, medicaments and biological substances
CPT/HCPCS: 96365; J3380

== ENCOUNTER 2021-02-26 16:03 | Outpatient (CLI) | payer OTHER ==
[~2021-02-26] VITALS: Ht 157.5 cm; Wt 90.7 kg
[2021-02-26 16:05] VITALS: BP 134/85
[2021-02-26 17:40] VITALS: BP 146/69
== END 2021-02-26 17:40 | disposition home or self-care (01) ==
LOC: M INFU 16:03
PROVIDERS: ATTEND Internal Medicine Gastroenterology
DX: K50.90 Crohn's disease, unspecified, without complications (principal); Z88.8 Allergy status to other drugs, medicaments and biological substances
CPT/HCPCS: 96365; J3380

== ENCOUNTER 2021-03-26 16:16 | Outpatient (CLI) | payer OTHER ==
[~2021-03-26 16:16] MED LIST changes: +MORP1SOL5 PO; -MORP20SO3 PO
[2021-03-26 16:20] VITALS: BP 123/86
[2021-03-26 18:00] VITALS: BP 137/83
== END 2021-03-26 18:00 | disposition home or self-care (01) ==
LOC: M INFU 16:16
PROVIDERS: ATTEND Internal Medicine Gastroenterology
DX: K50.90 Crohn's disease, unspecified, without complications (principal); Z88.8 Allergy status to other drugs, medicaments and biological substances
CPT/HCPCS: 96365; J3380

== ENCOUNTER 2021-04-23 16:03 | Outpatient (CLI) | payer OTHER ==
[~2021-04-23] VITALS: Ht 162.6 cm; Wt 85.5 kg
[2021-04-23 16:05] VITALS: BP 110/61
[2021-04-23 17:30] VITALS: BP 124/70
== END 2021-04-23 17:44 | disposition home or self-care (01) ==
LOC: M INFU 16:03
PROVIDERS: ATTEND Internal Medicine Gastroenterology
DX: K50.90 Crohn's disease, unspecified, without complications (principal); Z88.8 Allergy status to other drugs, medicaments and biological substances
CPT/HCPCS: 96365; J3380

== ENCOUNTER 2021-05-21 15:59 | Outpatient (CLI) | payer OTHER ==
[~2021-05-21] VITALS: Ht 162.6 cm; Wt 85.4 kg
[~2021-05-21 15:59] MED LIST changes: -ACETAMINOPHEN TAB 650MG DOSE (2X325MG) PO ONE; -VEDOLIZUMAB 300 MG in NS 250 ML IV ONE; -diphenhydrAMINE 25MG CAP PO ONE
[2021-05-21] MEDS ORDERED: VEDOLIZUMAB 300 MG in NS 250 ML IV ONE (16:00)
[2021-05-21] MEDS ORDERED: diphenhydrAMINE 25MG CAP PO ONE (16:00)
[2021-05-21] MEDS ORDERED: ACETAMINOPHEN TAB 650MG DOSE (2X325MG) PO ONE (16:00)
[2021-05-21 16:05] VITALS: BP 133/72
[2021-05-21 16:19] VITALS: BP 133/72
[2021-05-21 17:00] VITALS: BP 140/89
== END 2021-05-21 17:00 | disposition home or self-care (01) ==
LOC: M INFU 15:59
PROVIDERS: ATTEND Internal Medicine Gastroenterology
DX: K50.90 Crohn's disease, unspecified, without complications (principal); Z88.8 Allergy status to other drugs, medicaments and biological substances
CPT/HCPCS: 96365; J3380

== ENCOUNTER → 2021-06-04 | Outpatient (CLI) | payer OTHER | LOC: M SLEEP 20:00 | PROVIDERS: ATTEND Nurse Practitioner Family | DX: G47.33 Obstructive sleep apnea (adult) (pediatric) (principal) ==

== ENCOUNTER → 2021-06-17 | Outpatient (CLI) | payer OTHER ==
--- NOTE | 2021-06-17 21:26 | REPVR ---
PROCEDURE INFORMATION: Exam: MR Lumbar Spine Without Contrast Exam date and time: 06/17/2021 1:21 PM Age: 30 years old Clinical indication: Pain; [place]; Additional info: M54.9 chronic back pain dorsalgia TECHNIQUE: Imaging protocol: Multiplanar magnetic resonance images of the lumbar spine without intravenous contrast. COMPARISON: CT ABD/PEL W/IV ORAL CONTRAS 11/30/2017 11:44 PM FINDINGS: Vertebral body heights are maintained. No abnormal marrow signal. No cord compression. No abnormal cord signal. Conus medullaris terminates at the L1 level. Paravertebral soft tissues are unremarkable. L1-L2: No significant canal or foraminal narrowing. L2-L3: No significant canal or foraminal narrowing. L3-L4: No significant canal or foraminal narrowing. L4-L5: Large left paracentral disc extrusion effacing the left lateral recess and compressing the traversing left L5 nerve root. L5-S1: No significant canal or foraminal narrowing. IMPRESSION: Large left paracentral disc extrusion at L4-L5 compressing the traversing left L5 nerve root. Recommend surgical consultation. Electronically signed by: Herb Meyer On 06/17/2021 21:25:58 PM
== END ==
LOC: M PLAIMG 12:49
PROVIDERS: ATTEND Internal Medicine
DX: M51.26 Other intervertebral disc displacement, lumbar region (principal); M54.9 Dorsalgia, unspecified

== ENCOUNTER 2021-06-18 15:21 | Outpatient (CLI) | payer OTHER ==
[~2021-06-18] VITALS: Ht 162.6 cm; Wt 90.7 kg
[2021-06-18 15:25] VITALS: BP 131/83
[2021-06-18] MEDS ORDERED: VEDOLIZUMAB 300 MG in NS 250 ML IV ONE (16:00)
[2021-06-18] MEDS ORDERED: ACETAMINOPHEN TAB 650MG DOSE (2X325MG) PO ONE (16:00)
[2021-06-18] MEDS ORDERED: diphenhydrAMINE 25MG CAP PO ONE (16:00)
[2021-06-18 16:36] VITALS: BP 152/92
== END 2021-06-18 16:35 | disposition home or self-care (01) ==
LOC: M INFU 15:21
PROVIDERS: ATTEND Internal Medicine Gastroenterology
DX: K50.90 Crohn's disease, unspecified, without complications (principal); Z88.8 Allergy status to other drugs, medicaments and biological substances
CPT/HCPCS: 96365; J3380

== ENCOUNTER 2021-07-15 15:58 | Outpatient (CLI) | payer OTHER ==
[~2021-07-15] VITALS: Ht 167.6 cm; Wt 90.0 kg
[2021-07-15] MEDS ORDERED: diphenhydrAMINE 25MG CAP PO ONE (16:00)
[2021-07-15] MEDS ORDERED: VEDOLIZUMAB 300 MG in NS 250 ML IV ONE (16:00)
[2021-07-15] MEDS ORDERED: ACETAMINOPHEN TAB 650MG DOSE (2X325MG) PO ONE (16:00)
[2021-07-15 16:25] VITALS: BP 143/83
[2021-07-15 17:03] VITALS: BP 119/77
== END 2021-07-15 17:10 | disposition home or self-care (01) ==
LOC: M INFU 15:58
PROVIDERS: ATTEND Internal Medicine Gastroenterology
DX: K50.90 Crohn's disease, unspecified, without complications (principal); Z88.8 Allergy status to other drugs, medicaments and biological substances
CPT/HCPCS: 96365; J3380

== ENCOUNTER 2021-08-12 16:11 | Outpatient (CLI) | payer OTHER ==
[~2021-08-12] VITALS: Ht 162.6 cm; Wt 90.7 kg
[~2021-08-12 16:11] MED LIST changes: +ACETAMINOPHEN TAB 650MG DOSE (2X325MG) PO ONE; +VEDOLIZUMAB 300 MG in NS 250 ML IV ONE; +diphenhydrAMINE 25MG CAP PO ONE
[2021-08-12 16:54] VITALS: BP 119/76
[2021-08-12 17:37] VITALS: BP 124/84
== END 2021-08-12 17:30 | disposition home or self-care (01) ==
LOC: M INFU 16:11
PROVIDERS: ATTEND Internal Medicine Gastroenterology
DX: K50.90 Crohn's disease, unspecified, without complications (principal); Z88.8 Allergy status to other drugs, medicaments and biological substances
CPT/HCPCS: 96365; J3380

== ENCOUNTER → 2021-08-16 | Outpatient (CLI) | payer OTHER ==
[~2021-08-16] MED LIST changes: -ACETAMINOPHEN TAB 650MG DOSE (2X325MG) PO ONE; -VEDOLIZUMAB 300 MG in NS 250 ML IV ONE; -diphenhydrAMINE 25MG CAP PO ONE
[2021-08-16 11:25] LABS: COLLAGEN EPINEPHRINE 122 SECONDS (74-162)
== END ==
LOC: M LAB 10:32
PROVIDERS: ATTEND Physician Assistant
DX: M51.36 Other intervertebral disc degeneration, lumbar region (principal)

== ENCOUNTER 2021-09-17 11:16 | Outpatient (CLI) | payer OTHER ==
[~2021-09-17 11:16] MED LIST changes: +ACETAMINOPHEN TAB 650MG DOSE (2X325MG) PO ONE; +VEDOLIZUMAB 300 MG in NS 250 ML IV ONE; +diphenhydrAMINE 25MG CAP PO ONE
[2021-09-17 11:25] VITALS: BP 160/88
[2021-09-17 12:35] VITALS: BP 158/88
== END 2021-09-17 12:35 | disposition home or self-care (01) ==
LOC: M INFU 11:16
PROVIDERS: ATTEND Internal Medicine Gastroenterology
DX: K50.90 Crohn's disease, unspecified, without complications (principal); Z88.8 Allergy status to other drugs, medicaments and biological substances
CPT/HCPCS: 96365; J3380

== ENCOUNTER 2021-10-18 09:46 | Outpatient (CLI) | payer OTHER ==
[~2021-10-18] VITALS: Ht 162.6 cm; Wt 90.7 kg
[2021-10-18 09:50] VITALS: BP 139/79
[2021-10-18] MEDS ORDERED: diphenhydrAMINE 25MG CAP PO ONE (10:00)
[2021-10-18] MEDS ORDERED: ACETAMINOPHEN TAB 650MG DOSE (2X325MG) PO ONE (10:00)
[2021-10-18] MEDS ORDERED: VEDOLIZUMAB 300 MG in NS 250 ML IV ONE (10:00)
[2021-10-18 11:00] VITALS: BP 128/77
== END 2021-10-18 11:00 | disposition home or self-care (01) ==
LOC: M INFU 09:46
PROVIDERS: ATTEND Internal Medicine Gastroenterology
DX: K50.90 Crohn's disease, unspecified, without complications (principal); Z88.8 Allergy status to other drugs, medicaments and biological substances
CPT/HCPCS: 96365; J3380

== ENCOUNTER → 2021-10-26 | Outpatient (REF) | payer OTHER ==
[~2021-10-26] MED LIST changes: -ACETAMINOPHEN TAB 650MG DOSE (2X325MG) PO ONE; -VEDOLIZUMAB 300 MG in NS 250 ML IV ONE; -diphenhydrAMINE 25MG CAP PO ONE
[2021-10-26 18:11] LABS: PHOSPHORUS LEVEL 2.4 MG/DL (2.5-4.9)
[2021-10-26 18:18] LABS: TOTAL 25(OH) VITAMIN D 18.5 NG/ML (30.0-100.0)
== END ==
LOC: M SFHCRHEU 12:46
PROVIDERS: ATTEND Internal Medicine
DX: E55.9 Vitamin D deficiency, unspecified (principal); E61.1 Iron deficiency; R79.0 Abnormal level of blood mineral

== ENCOUNTER 2021-11-12 13:41 | Outpatient (CLI) | payer OTHER ==
[~2021-11-12] VITALS: Ht 162.6 cm; Wt 90.7 kg
[2021-11-12 13:50] VITALS: BP 124/59
[2021-11-12 15:00] VITALS: BP 138/80
[2021-11-12] MEDS ORDERED: ACETAMINOPHEN TAB 650MG DOSE (2X325MG) PO ONE (16:00)
[2021-11-12] MEDS ORDERED: VEDOLIZUMAB 300 MG in NS 250 ML IV ONE (16:00)
[2021-11-12] MEDS ORDERED: diphenhydrAMINE 25MG CAP PO ONE (16:00)
== END 2021-11-12 15:00 | disposition home or self-care (01) ==
LOC: M INFU 13:41
PROVIDERS: ATTEND Internal Medicine Gastroenterology
DX: K50.90 Crohn's disease, unspecified, without complications (principal); Z88.8 Allergy status to other drugs, medicaments and biological substances
CPT/HCPCS: 96365; J3380

== ENCOUNTER 2021-12-17 09:49 | Outpatient (CLI) | payer OTHER ==
[~2021-12-17 09:49] MED LIST changes: +ACETAMINOPHEN TAB 650MG DOSE (2X325MG) PO ONE; +VEDOLIZUMAB 300 MG in NS 250 ML IV ONE; +diphenhydrAMINE 25MG CAP PO ONE
[2021-12-17 10:10] VITALS: BP 139/82
[2021-12-17] MEDS ORDERED: VEDOLIZUMAB 300 MG in NS 250 ML IV ONE (10:30)
[2021-12-17] MEDS ORDERED: ACETAMINOPHEN TAB 650MG DOSE (2X325MG) PO ONE (10:30)
[2021-12-17] MEDS ORDERED: diphenhydrAMINE 25MG CAP PO ONE (10:30)
[2021-12-17 11:07] VITALS: BP 126/89
== END 2021-12-17 11:05 | disposition home or self-care (01) ==
LOC: M INFU 09:49
PROVIDERS: ATTEND Internal Medicine Gastroenterology
DX: K50.90 Crohn's disease, unspecified, without complications (principal); Z88.8 Allergy status to other drugs, medicaments and biological substances
CPT/HCPCS: 96365; J3380

== ENCOUNTER 2022-03-15 11:10 | Outpatient (CLI) | payer OTHER ==
[~2022-03-15] VITALS: Ht 167.6 cm; Wt 90.7 kg
[~2022-03-15 11:10] MED LIST changes: -ACETAMINOPHEN TAB 650MG DOSE (2X325MG) PO ONE; -VEDOLIZUMAB 300 MG in NS 250 ML IV ONE; -diphenhydrAMINE 25MG CAP PO ONE
[2022-03-15 11:18] VITALS: BP 133/90
[2022-03-15] MEDS ORDERED: ACETAMINOPHEN TAB 650MG DOSE (2X325MG) PO ONE (11:30)
[2022-03-15] MEDS ORDERED: VEDOLIZUMAB 300 MG in NS 250 ML IV ONE (11:30)
[2022-03-15] MEDS ORDERED: diphenhydrAMINE 25MG CAP PO ONE (11:30)
[2022-03-15 12:28] VITALS: BP 138/78
== END 2022-03-15 12:30 | disposition home or self-care (01) ==
LOC: M INFU 11:10
PROVIDERS: ATTEND Internal Medicine Gastroenterology
DX: K50.90 Crohn's disease, unspecified, without complications (principal); Z88.8 Allergy status to other drugs, medicaments and biological substances
CPT/HCPCS: 96365; J3380

== ENCOUNTER 2022-04-12 11:40 | Outpatient (CLI) | payer OTHER ==
[~2022-04-12] VITALS: Ht 167.6 cm; Wt 90.0 kg
[~2022-04-12 11:40] MED LIST changes: +ACETAMINOPHEN TAB 650MG DOSE (2X325MG) PO ONE; +VEDOLIZUMAB 300 MG in NS 250 ML IV ONE; +diphenhydrAMINE 25MG CAP PO ONE
[2022-04-12 12:54] VITALS: BP 130/82
== END 2022-04-12 12:55 | disposition home or self-care (01) ==
LOC: M INFU 11:40
PROVIDERS: ATTEND Internal Medicine Gastroenterology
DX: K50.90 Crohn's disease, unspecified, without complications (principal); Z88.8 Allergy status to other drugs, medicaments and biological substances
CPT/HCPCS: 96365; J3380

== ENCOUNTER 2022-05-10 11:25 | Outpatient (CLI) | payer OTHER ==
[~2022-05-10] VITALS: Ht 165.1 cm; Wt 90.7 kg
[~2022-05-10 11:25] MED LIST changes: -ACETAMINOPHEN TAB 650MG DOSE (2X325MG) PO ONE; -VEDOLIZUMAB 300 MG in NS 250 ML IV ONE; -diphenhydrAMINE 25MG CAP PO ONE
[2022-05-10 11:30] VITALS: BP 141/83
[2022-05-10] MEDS ORDERED: diphenhydrAMINE 25MG CAP PO ONE (11:30)
[2022-05-10] MEDS ORDERED: VEDOLIZUMAB 300 MG in NS 250 ML IV ONE (11:30)
[2022-05-10] MEDS ORDERED: ACETAMINOPHEN TAB 650MG DOSE (2X325MG) PO ONE (11:30)
[2022-05-10 12:25] VITALS: BP 155/76
== END 2022-05-10 12:30 | disposition home or self-care (01) ==
LOC: M INFU 11:25
PROVIDERS: ATTEND Internal Medicine Gastroenterology
DX: K50.90 Crohn's disease, unspecified, without complications (principal); Z88.8 Allergy status to other drugs, medicaments and biological substances
CPT/HCPCS: 96365; J3380

== ENCOUNTER 2022-06-17 14:00 | Outpatient (CLI) | payer OTHER ==
[~2022-06-17] VITALS: Ht 165.1 cm; Wt 90.9 kg
[~2022-06-17 14:00] MED LIST changes: +ACETAMINOPHEN TAB 650MG DOSE (2X325MG) PO ONE; +VEDOLIZUMAB 300 MG in NS 250 ML IV ONE; +diphenhydrAMINE 25MG CAP PO ONE
[2022-06-17 14:11] VITALS: BP 130/81
[2022-06-17 15:07] VITALS: BP 141/74
== END 2022-06-17 15:10 | disposition home or self-care (01) ==
LOC: M INFU 14:00
PROVIDERS: ATTEND Internal Medicine Gastroenterology
DX: K50.90 Crohn's disease, unspecified, without complications (principal); Z88.8 Allergy status to other drugs, medicaments and biological substances
CPT/HCPCS: 96365; J3380

== ENCOUNTER 2022-08-16 12:30 | Outpatient (CLI) | payer OTHER ==
[~2022-08-16] VITALS: Ht 165.1 cm; Wt 90.7 kg
[2022-08-16 12:47] VITALS: BP 169/79
[2022-08-16 13:45] VITALS: BP 138/88
== END 2022-08-16 13:35 | disposition home or self-care (01) ==
LOC: M INFU 12:30
PROVIDERS: ATTEND Internal Medicine Gastroenterology
DX: K50.90 Crohn's disease, unspecified, without complications (principal); Z88.1 Allergy status to other antibiotic agents; Z88.8 Allergy status to other drugs, medicaments and biological substances
CPT/HCPCS: 96365; J3380

== ENCOUNTER 2022-09-16 14:00 | Outpatient (CLI) | payer OTHER ==
[~2022-09-16] VITALS: Ht 162.6 cm; Wt 86.4 kg
[2022-09-16 14:00] VITALS: BP 154/86
[2022-09-16 15:00] VITALS: BP 134/84
== END 2022-09-16 15:00 | disposition home or self-care (01) ==
LOC: M INFU 14:00
PROVIDERS: ATTEND Internal Medicine Gastroenterology
DX: K50.90 Crohn's disease, unspecified, without complications (principal); Z88.1 Allergy status to other antibiotic agents; Z88.8 Allergy status to other drugs, medicaments and biological substances
CPT/HCPCS: 96365; J3380

== ENCOUNTER 2022-11-14 12:10 | Outpatient (CLI) | payer OTHER ==
[2022-11-14 12:10] VITALS: BP 117/72
[2022-11-14 13:45] VITALS: BP 132/77
== END 2022-11-14 13:55 | disposition home or self-care (01) ==
LOC: M INFU 12:10
PROVIDERS: ATTEND Internal Medicine Gastroenterology
DX: K50.90 Crohn's disease, unspecified, without complications (principal); Z88.1 Allergy status to other antibiotic agents; Z88.8 Allergy status to other drugs, medicaments and biological substances
CPT/HCPCS: 96365; J3380

== ENCOUNTER → 2022-12-15 | Outpatient (CLI) | payer OTHER ==
[~2022-12-15] MED LIST changes: -ACETAMINOPHEN TAB 650MG DOSE (2X325MG) PO ONE; -VEDOLIZUMAB 300 MG in NS 250 ML IV ONE; -diphenhydrAMINE 25MG CAP PO ONE
[2022-12-15 12:37] LABS: BASO % 0.1 % (0.0-1.0); EOS # 0.1 10^3/uL (0.0-0.5); EOS % 0.6 % (0.0-3.0); HEMATOCRIT 40.6 % (36.0-47.0); HEMOGLOBIN 13.4 g/dl (12.0-15.5); LYMPH # 3.4 10^3/uL (1.5-5.0); LYMPH % 20.5 % (24.0-44.0); MEAN CORPUSCULAR HEMOGLOBIN 29.7 pg (27.0-33.0); MONO # 0.7 10^3/uL (0.0-0.8); NEUTROPHILS # 12.3 10^3/uL (1.5-8.5); NEUTROPHILS % 74.4 % (36.0-66.0); PLATELET COUNT, AUTOMATED 303 10^3/uL (150-450); RED BLOOD COUNT 4.51 10^6/uL (4.00-5.40); WHITE BLOOD COUNT 16.6 10^3/uL (4.0-10.0)
[2022-12-15 13:09] LABS: C REACTIVE PROTEIN QUANTITATIV < 0.40 MG/DL (<1.0)
[2022-12-15 13:10] LABS: ALBUMIN 3.8 G/DL (3.2-5.2); ALKALINE PHOSPHATASE 69 U/L (46-116); ALT/SGPT 15 U/L (7.0-40); AST/SGOT 17 U/L (<34); BILIRUBIN,TOTAL 0.3 MG/DL (0.3-1.2); BLOOD UREA NITROGEN 7 MG/DL (9-23); CARBON DIOXIDE LEVEL 29 MMOL/L (20-31); CHLORIDE LEVEL 108 MMOL/L (98-107); FERRITIN 47.6 NG/ML (7.3-270.7); FOLATE 14.6 NG/ML (>5.4); GLOMERULAR FILTRATION RATE > 60.0 (>60); GLUCOSE, FASTING 86 MG/DL (60-100); IRON (FE) 35 UG/DL (50-170); PERCENT SATURATION 10.1 % (13.2-45.0); POTASSIUM SERUM 4.3 MMOL/L (3.5-5.1); SODIUM LEVEL 141 MMOL/L (136-145); TOTAL IRON BINDING CAPACITY 345 UG/DL (250-425); TOTAL PROTEIN 6.9 G/DL (5.7-8.2); VITAMIN B12 LEVEL 424 PG/ML (211-911)
== END ==
LOC: M LAB 11:52
PROVIDERS: ATTEND Internal Medicine Gastroenterology
DX: K50.018 Crohn's disease of small intestine with other complication (principal)

== ENCOUNTER → 2022-12-16 | Outpatient (REF) | payer OTHER | LOC: M LAB REF 14:03 | PROVIDERS: ATTEND Internal Medicine Gastroenterology | DX: R19.7 Diarrhea, unspecified (principal); K50.018 Crohn's disease of small intestine with other complication ==

== ENCOUNTER 2023-01-06 13:50 | Outpatient (CLI) | payer OTHER ==
[~2023-01-06] VITALS: Ht 162.6 cm; Wt 91.0 kg
[2023-01-06 13:54] VITALS: BP 130/85
[2023-01-06] MEDS ORDERED: diphenhydrAMINE 25MG CAP PO ONE (14:00)
[2023-01-06] MEDS ORDERED: VEDOLIZUMAB 300 MG in NS 250 ML IV ONE (14:00)
[2023-01-06] MEDS ORDERED: ACETAMINOPHEN TAB 650MG DOSE (2X325MG) PO ONE (14:00)
[2023-01-06 15:00] VITALS: BP 130/74
== END 2023-01-06 15:00 | disposition home or self-care (01) ==
LOC: M INFU 13:50
PROVIDERS: ATTEND Internal Medicine Gastroenterology
DX: K50.90 Crohn's disease, unspecified, without complications (principal); Z88.1 Allergy status to other antibiotic agents; Z88.8 Allergy status to other drugs, medicaments and biological substances
CPT/HCPCS: 96365; J3380

== ENCOUNTER → 2023-01-06 | Outpatient (REF) | payer OTHER ==
[2023-01-06 16:49] LABS: PHOSPHORUS LEVEL 3.7 MG/DL (2.5-4.9)
[2023-01-06 16:51] LABS: TOTAL 25(OH) VITAMIN D 27.4 NG/ML (20.0-100.0)
== END ==
LOC: M SFHCRHEU 12:04
PROVIDERS: ATTEND Internal Medicine
DX: E55.9 Vitamin D deficiency, unspecified (principal); R79.0 Abnormal level of blood mineral; R76.8 Other specified abnormal immunological findings in serum

== ENCOUNTER 2023-02-06 10:54 | Outpatient (CLI) | payer OTHER ==
[~2023-02-06] VITALS: Ht 162.6 cm; Wt 91.0 kg
[2023-02-06 11:00] VITALS: BP 145/92; O2SAT 97
[2023-02-06] MEDS ORDERED: VEDOLIZUMAB 300 MG in NS 250 ML IV ONE (11:00)
[2023-02-06] MEDS ORDERED: ACETAMINOPHEN TAB 650MG DOSE (2X325MG) PO ONE (11:00)
[2023-02-06] MEDS ORDERED: diphenhydrAMINE 25MG CAP PO ONE (11:00)
[2023-02-06 12:05] VITALS: BP 145/88; O2SAT 100
== END 2023-02-06 12:05 | disposition home or self-care (01) ==
LOC: M INFU 10:54
PROVIDERS: ATTEND Internal Medicine Gastroenterology
DX: K50.90 Crohn's disease, unspecified, without complications (principal); Z88.8 Allergy status to other drugs, medicaments and biological substances
CPT/HCPCS: 96365; J3380